=== PATIENT | female | born 1985 | race Caucasian/White ===

== ENCOUNTER 2021-06-30 23:00 | Emergency (ER) | payer BC ==
[~2021-06-30] VITALS: Ht 177.8 cm; Wt 149.7 kg
[2021-07-01 00:58] LABS: BASOPHILS ABSOLUTE AUTO 0.08 K/mm3 (0.00-0.23); BASOPHILS PERCENT AUTO 1 % (0-2); EOSINOPHILS ABSOLUTE AUTO 0.27 K/mm3 (0.00-0.68); EOSINOPHILS PERCENT AUTO 2 % (0-6); Hematocrit 42.3 % (33.0-51.0); Hemoglobin 14.5 g/dL (11.5-16.0); IMMATURE GRAN ABSOLUTE AUTO 0.07 K/mm3 (0.00-0.10); IMMATURE GRAN PERCENT AUTO 1 % (0-1); LYMPHOCYTES ABSOLUTE AUTO 2.94 K/mm3 (0.84-5.20); LYMPHOCYTES PERCENT AUTO 20 % (21-46); MONOCYTES ABSOLUTE AUTO 1.06 K/mm3 (0.16-1.47); MONOCYTES PERCENT AUTO 7 % (4-13); Mean Corpuscular HGB Conc 34.3 g/dL (31.5-36.5); Mean Corpuscular Volume 87 fL (80-100); NEUTROPHILS ABSOLUTE AUTO 10.62 K/mm3 (1.96-9.15); NEUTROPHILS PERCENT AUTO 71 % (41-73); Platelet Count 303 K/mm3 (150-400); RDW Coefficient Variation 12.9 % (11.7-14.2); RDW Standard Deviation 40.6 fL (35.1-46.3); Red Blood Cell Count 4.84 M/mm3 (3.80-5.20); White Blood Cell Count 15.04 K/mm3 (4.00-11.30)
== END 2021-07-01 04:50 | disposition home or self-care (01) ==
LOC: ER 23:00
PROVIDERS: Emergency Medicine
DX: S01.01XA Laceration without foreign body of scalp, initial encounter (principal); S09.0XXA Injury of blood vessels of head, not elsewhere classified, initial encounter; Z23 Encounter for immunization; W10.9XXA Fall (on) (from) unspecified stairs and steps, initial encounter; W22.8XXA Striking against or struck by other objects, initial encounter; Y92.003 Bedroom of unspecified non-institutional (private) residence as the place of occurrence of the external cause
CPT/HCPCS: 12002; 70450; 85025; 90471; 90714; 99284-25

== ENCOUNTER 2021-07-09 16:15 | Emergency (ER) | payer BC ==
[~2021-07-09] VITALS: Ht 177.8 cm; Wt 149.7 kg
[2021-07-09 16:49] LABS: BASOPHILS ABSOLUTE AUTO 0.08 K/mm3 (0.00-0.23); BASOPHILS PERCENT AUTO 1 % (0-2); EOSINOPHILS PERCENT AUTO 3 % (0-6); Hematocrit 40.6 % (33.0-51.0); IMMATURE GRAN ABSOLUTE AUTO 0.08 K/mm3 (0.00-0.10); IMMATURE GRAN PERCENT AUTO 1 % (0-1); LYMPHOCYTES ABSOLUTE AUTO 2.89 K/mm3 (0.84-5.20); LYMPHOCYTES PERCENT AUTO 24 % (21-46); MONOCYTES PERCENT AUTO 7 % (4-13); Mean Corpuscular HGB 29.5 pg (26.0-34.0); Mean Corpuscular HGB Conc 34.5 g/dL (31.5-36.5); Mean Corpuscular Volume 86 fL (80-100); Mean Platelet Volume 9.8 fL (9.1-12.4); NEUTROPHILS ABSOLUTE AUTO 7.94 K/mm3 (1.96-9.15); NEUTROPHILS PERCENT AUTO 65 % (41-73); Platelet Count 460 K/mm3 (150-400); RDW Coefficient Variation 12.6 % (11.7-14.2); RDW Standard Deviation 39.2 fL (35.1-46.3); Red Blood Cell Count 4.75 M/mm3 (3.80-5.20); White Blood Cell Count 12.29 K/mm3 (4.00-11.30)
[2021-07-09 17:13] LABS: Alanine Aminotransfer (ALT/SGP 26 U/L (12-78); Albumin/Globulin Ratio 0.6 (0.8-1.8); Alk Phos 132 U/L (50-136); Anion Gap 5 mmol/L (6-16); Aspartate Aminotrans (AST/SGOT 46 U/L (12-37); Bilirubin, Total 0.4 mg/dL (0.1-1.0); Blood Urea Nitrogen 5 mg/dL (8-24); CO2, Blood 24 mmol/L (21-32); Calcium, Blood 8.7 mg/dL (8.5-10.1); Chloride, Blood 104 mmol/L (98-108); Creatinine, Blood 0.42 mg/dL (0.40-1.00); Globulin, Blood 4.8 g/dL (2.2-4.0); Glomerular Filtration Rate >60 (60-); Glucose, Blood 313 mg/dL (70-99); Potassium, Blood 4.7 mmol/L (3.5-5.5); Sodium, Blood 133 mmol/L (136-145); Total Protein, Blood 7.8 g/dL (6.4-8.2)
[2021-07-09] MEDS ORDERED: TOPROL XL50 MG PO (18:02)
[2021-07-09] MEDS ORDERED: CEPH500 PO (18:07)
== END 2021-07-09 18:20 | disposition home or self-care (01) ==
LOC: ER 16:15
PROVIDERS: Physician Assistant
DX: T81.33XA Disruption of traumatic injury wound repair, initial encounter (principal); I10 Essential (primary) hypertension; R00.0 Tachycardia, unspecified; S09.90XD Unspecified injury of head, subsequent encounter; R22.0 Localized swelling, mass and lump, head; R73.9 Hyperglycemia, unspecified; W10.9XXD Fall (on) (from) unspecified stairs and steps, subsequent encounter
CPT/HCPCS: 36415; 80053; 85025; 93005; 93010; 96374; 99283-25; A9270

== ENCOUNTER 2021-08-19 02:36 | Day surgery (SDC) | payer BC ==
[~2021-08-19 02:36] MED LIST: CEPH500 PO; LISI20 PO; METF500 PO; TOPROL XL50 MG PO
== END 2021-08-19 22:56 | disposition home or self-care (01) ==
LOC: WOUND 02:36
DX: S01.90XA Unspecified open wound of unspecified part of head, initial encounter (principal); W10.9XXA Fall (on) (from) unspecified stairs and steps, initial encounter; Z88.0 Allergy status to penicillin
CPT/HCPCS: A9270; G0463

== ENCOUNTER 2021-08-26 05:01 | Day surgery (SDC) | payer BC | END 2021-08-26 23:28 | disposition home or self-care (01) | LOC: WOUND 05:01 | DX: S01.90XA Unspecified open wound of unspecified part of head, initial encounter (principal); X58.XXXA Exposure to other specified factors, initial encounter | CPT/HCPCS: G0463 ==

== ENCOUNTER 2021-09-02 05:22 | Day surgery (SDC) | payer BC | END 2021-09-02 23:00 | disposition home or self-care (01) | LOC: WOUND 05:22 | DX: S01.90XA Unspecified open wound of unspecified part of head, initial encounter (principal); W10.9XXD Fall (on) (from) unspecified stairs and steps, subsequent encounter | CPT/HCPCS: G0463 ==

== ENCOUNTER → 2022-02-25 | Outpatient (CLI) | payer BC ==
[2022-02-28 14:11] LABS: HPV 16 Negative (Negative); HPV 18 Negative (Negative); HPV OTHER HR TYPES Negative (Negative)
== END | disposition home or self-care (01) ==
LOC: LAB SHORT 08:24
PROVIDERS: Physician Assistant
DX: Z01.419 Encounter for gynecological examination (general) (routine) without abnormal findings (principal)
CPT/HCPCS: 87624; G0145